=== PATIENT | female | born 1945 | race Caucasian/White ===

== ENCOUNTER 2018-08-30 13:19 | Inpatient (IN) | payer OTHER ==
[~2018-08-30] VITALS: Ht 170.2 cm; Wt 76.2 kg
[2018-08-30 13:21] VITALS: BP 175/94
--- NOTE | 2018-08-30 13:28 | NUR ---
WORDS TO RECALL BY PT PER MD: FLOWER, PENCIL, CAR
[2018-08-30 14:02] LABS: ABSOLUTE NEUTROPHILS 7.1 thou/uL (1.4-8.2); BASOPHILS 0.5 % (0.0-2.0); EOSINOPHILS 2.2 % (0.0-3.0); HEMATOCRIT 41.9 % (37.0-47.0); HEMOGLOBIN 14.5 gm/dL (12.0-15.0); MCH 31.4 pg (26.0-34.0); MCHC 34.5 g/dL (28.0-37.0); MONOCYTES 4.7 % (1.0-8.0); PLATELET COUNT 298 thou/uL (150-400); POLYS 77.6 % (36.0-66.0); RBC 4.61 mil/uL (4.20-5.00); RDW 13.4 % (10.5-14.5); WBC 9.1 thou/uL (4.0-11.0)
[2018-08-30 14:09] LABS: ANION GAP 10 mmol/L (7-16); BUN 18 mg/dL (7-18); CALCIUM 9.8 mg/dL (8.5-10.1); CHLORIDE 103 mmol/L (98-107); CO2 25 mmol/L (21-32); CREATININE 0.9 mg/dL (0.6-1.0); GLUCOSE 125 mg/dL (74-106); SODIUM 138 mmol/L (136-145)
[2018-08-30 14:17] LABS: ALBUMIN 4.1 g/dL (3.4-5.0); APTT 25.3 Seconds (24.5-32.8); PROTIME 9.6 Seconds (9.3-11.4); SGOT 17 U/L (15-37); SGPT 23 U/L (30-65); TOTAL BILIRUBIN 0.5 mg/dL (<0.1-1.0); TOTAL PROTEIN 7.6 g/dL (6.4-8.2); TROPONIN-I <0.06 ng/mL (<0.06)
[2018-08-30 14:22] LABS: URINE BILIRUBIN NEGATIVE (Negative); URINE BLOOD NEGATIVE (Negative); URINE CLARITY CLEAR; URINE COLOR YELLOW; URINE GLUCOSE-RANDOM* NEGATIVE (Negative); URINE KETONES 2+ (Negative); URINE LEUKOCYTES TRACE (Negative); URINE NITRITE NEGATIVE (Negative); URINE PROTEIN (DIPSTICK) TRACE (Negative); URINE SPECIFIC GRAVITY 1.015 (1.005-1.035); URINE UROBILINOGEN 0.2 E.U./dl (0.2-1.0)
[2018-08-30 14:28] LABS: AMP/METHAMP Negative (Negative); BARBITURATES Negative (Negative); BENZODIAZEPINES Negative (Negative); COCAINE Negative (Negative); METHADONE Negative (Negative); OPIATES Negative (Negative); PCP Negative (Negative)
[2018-08-30 15:19] VITALS: BP 140/78
[2018-08-30] MEDS ORDERED: LIPITOR10 MG PO (15:30)
[2018-08-30] MEDS ORDERED: TYLENOL325 MG PO (15:31)
[2018-08-30] MEDS ORDERED: CLARITIN10 MG PO (15:31)
[2018-08-30] MEDS ORDERED: TIMOLOL MALEATE5 M1 OPHTHALMIC (15:32)
[2018-08-30 15:40] VITALS: BP 163/78
--- NOTE | 2018-08-30 15:41 | NUR ---
PT ORIENTED TO ROOM AND UNIT. BED LOW AND LOCKED, SIDE RAILS UP X3, CALL LIGHT IN REACH. WILL CONTINUE TO ASSESS.
[2018-08-30] MEDS ORDERED: TURMERIC500 M2 PO (15:47)
[2018-08-30] MEDS ORDERED: TIMOPTIC 0.5%1 EACH OPHTHALMIC (15:59)
[2018-08-30 17:28] VITALS: BP 145/84
[2018-08-30 19:05] VITALS: BP 145/92
--- NOTE | 2018-08-31 02:36 | NUR ---
ASSUMED CARE FOR PT THIS EVEINING. ASSESSMENT REVEALS SOME CONFUSION PT WILL ASK THE SAME QUESTIONS AGAIN WHEN FAMILY IS PRESENT AFTER IT WAS INITIALLY ANSWERED IN THE PREVIOUS MINUTES BEFORE. PT STATES SHE HAS NO N/V AND CAN NAME ALL THE VISITORS IN HER ROOM. FOLLOWING POC WITH IVPB ANTIBIOTICS. HOURLY ROUNDING.
[2018-08-31 03:17] VITALS: BP 106/70
[2018-08-31 05:42] LABS: ANION GAP 9 mmol/L (7-16); BUN 14 mg/dL (7-18); CALCIUM 9.2 mg/dL (8.5-10.1); CHLORIDE 107 mmol/L (98-107); CHOLESTEROL 210 mg/dL (<200); CO2 25 mmol/L (21-32); CREATININE 0.8 mg/dL (0.6-1.0); GLUCOSE 109 mg/dL (74-106); HDL CHOLESTEROL 73 mg/dL (>40); LDL CHOLESTEROL 119 mg/dL (<100); POTASSIUM 3.7 mmol/L (3.5-5.1); SODIUM 141 mmol/L (136-145); TC:HDL 2.9 Ratio (Not establshd); TRIGLYCERIDE 91 mg/dL (<150); VLDL 18 mg/dL (<40)
[2018-08-31 05:45] LABS: SERUM ASSESSMENT Clear
[2018-08-31 05:48] LABS: HEMOGLOBIN 13.1 gm/dL (12.0-15.0); MCH 30.9 pg (26.0-34.0); MCHC 33.7 g/dL (28.0-37.0); MCV 91.8 fL (80.0-100.0); RBC 4.24 mil/uL (4.20-5.00); RDW 13.7 % (10.5-14.5)
[2018-08-31 07:41] VITALS: BP 145/88
--- NOTE | 2018-08-31 08:35 | EKG ---
[address] [employer] [place] [address] ELECTROCARDIOGRAM REPORT Name: RAY DOHERTYNASIR Melissa Room #: 350-P [facility] IN .R.#: [id number] ������������������ Admission: 08/30/18 ������������������ Attend Phys: Amol Quintanilla MD Discharge: ������������������ Date of : 45 Report #: [id number] ����������������������������������������������������������������� [id number] THIS REPORT FOR: //name// [facility] ED Test Date: 2018-08-30 Test Time: 13:20:06 Pat Name: PRADIP DOHERTY Department: Room: [facility] Gender: F Sql Manager: REHANA : 1945 Requested By: Jean-Paul Sinclair Order Number: [id number] MD: Mayco Oviedo Measurements Intervals [place] Rate: 63 P: 61 DC: 155 QRS: 11 QRSD: 107 T: 66 QT: 412 QTc: 422 Interpretive Statements Sinus rhythm Normal tracing Compared to ECG 02/23/2008 20:30:17 No significant changes Electronically Signed On 08-31-2018 8:35:45 CDT by Mayco Oviedo [email or web address] ��������������������������������������������� <ELECTRONICALLY SIGNED> ���������������������������������������� By: Mayco Oviedo MD, [facility] ��������������������������������������������� 08/31/18 0835 1320 1320 Mayco Oviedo MD, FACC /EPI
[2018-08-31] MEDS ORDERED: ASPIR 8181 MG PO (14:25)
[2018-08-31] MEDS ORDERED: KEFLEX500 M1 PO (14:26)
[2018-08-31 14:33] VITALS: BP 145/88
--- NOTE | 2018-08-31 14:36 | NUR ---
ASSESSMENT: CM REVIEWED CHART AND MET WITH PATIENT AT THE BEDSIDE. PT IS ALERT AND ORIENTED X4. PT LIVES AT HOME WITH HER . PT IS FULLY INDEPENDENT WITH ADLS AND AMBULATION. PT REPORTS SHE HAS ABOUT 3 STEPS TO ENTER THE HOME AND NO STEPS SHE HAS TO USE ONCE INSIDE. PT REPORTS NO HX OF HH OR SNF. CM DISCUSSED ROLE. PT DOES NOT ANTICIPATE ANY NEEDS FROM CM AND PLANS TO RETURN HOME ONCE STABLE. PT IS POSSIBLE DISCHARGE TODAY PENDING RESULTS FROM MRI.
--- NOTE | 2018-08-31 15:04 | NUR ---
PATIENT WILL BE DISCHARGED HOME AT THIS TIME. MRI WAS NEGATIVE AND NEURO DSICHARGED HER. SHE IS PLEASANT. ALERT ORIENTED X4. PLEASANT. SHE WILL BE WHEELED TO CAR BY VOLUNTEER.
== END 2018-08-31 15:07 | disposition home or self-care (01) | DRG 70 ==
LOC: ER 13:19 → 3W 14:37 → EROBS 14:37 → 3W 15:35 → ENTRNSPT 08-31 15:01 → EDTRNSPTSTS 08-31 15:02 → 3W 08-31 15:07
PROVIDERS: Emergency Medicine; ADMIT Hospitalist
DX: G93.40 Encephalopathy, unspecified (principal); E43 Unspecified severe protein-calorie malnutrition; G45.9 Transient cerebral ischemic attack, unspecified; N39.0 Urinary tract infection, site not specified; G45.4 Transient global amnesia; E78.5 Hyperlipidemia, unspecified; Z79.82 Long term (current) use of aspirin; Z79.899 Other long term (current) drug therapy
CPT/HCPCS: 10879